=== PATIENT | female | born 1945 | race Caucasian/White ===

== ENCOUNTER → 2017-02-13 | Outpatient (CLI) | payer OTHER ==
[~2017-02-13] MED LIST: ACETAMINOPHEN650 M1 PO; ALLEGRA180 MG PO; ALLER-FEX180 MG PO; AMITRIPTYLINE H25 MG PO; ATORVASTATIN CA10 MG PO; AZULFIDINE PO; AZULFIDINE500 M1 PO; CALCIUM + D 6001 TA1 PO; CALTRATE 600+D PO; CERTAGEN PO; CHLORTHALIDONE25 MG PO; DARVOCET-N 1001 TAB PO; EDARBI80 MG PO; ENBREL50 MG/M1 SQ; ENBREL50 MG/ML PO; ETODOLAC500 MG PO; FEMARA2.5 MG PO; FISH OIL 1,0001 EAC2 PO; FISH OIL 1,001000 M1 PO; FISH OIL 1,001000 MG PO; FLOVENT DI50 MCG/DIS IH; FOLIC ACID PO; FOLIC ACID1 MG PO; FOSAMAX PO; K-DUR10 MEQ PO; LASIX PO; LASIX20 MG PO; LIPITOR PO; LIPITOR20 MG PO; LODINE500 M1 PO; LODINE500 MG PO; LOTREL 10/20 MG1 CAP PO; METHOTREXATE2.5 MG PO; MONTELUKAST SOD10 MG PO; MULTI VITAMIN1 EACH PO; NEXIUM 24HR20 MG PO; NEXIUM PO; OMEGA 3 FISH OI1 CAP PO; PRED FORTE1 ML OP; PREDNISONE PO; PREDNISONE5 MG PO; RESTASIS32 EA OP; SULFAZINE PO; TRAMADOL HCL50 M1 PO; TRAMADOL HCL50 M2 PO; TREXALL7.5 MG PO; VERAMYST10 GM NS; VITAMIN D 22000 UNIT PO; XARELTO20 MG PO
[2017-02-13 13:19] LABS: ALBUMIN SERUM 3.6 g/dL (3.5-5.0); BILIRUBIN,TOTAL 0.5 mg/dL (0.2-2.0); BUN/CREATININE RATIO 17.5; CALCIUM SERUM 9.4 mg/dL (8.4-10.2); CREATININE SERUM 1.2 mg/dL (0.6-1.4); GLOM FILT RATE Estimated 46.1 mL/min (>60); POTASSIUM 3.4 mmol/L (3.5-5.1); PROTEIN TOTAL SERUM 6.9 g/dL (6.0-8.3)
[2017-02-13 13:35] LABS: FERRITIN 20 ng/mL (11-307)
== END | disposition home or self-care (01) ==
LOC: CLAB 11:01
PROVIDERS: Family Medicine
DX: E53.8 Deficiency of other specified B group vitamins (principal); N18.3 Chronic kidney disease, stage 3 (moderate)
CPT/HCPCS: 36415; 80053; 82607; 82728; 83921

== ENCOUNTER → 2017-04-03 | Outpatient (CLI) | payer OTHER ==
[2017-04-03 10:24] LABS: BASOPHIL# 0.1 X10e3 (0-0.3); BASOPHIL% 1.4 % (0-2.5); EOSINOPHIL# 0.1 X10e3 (0-0.7); HEMATOCRIT 33.5 % (35.0-45.0); LYMPHOCYTE# 2.8 X10e3 (1.0-3.5); LYMPHOCYTE% 38.4 % (17.0-45.0); MEAN CORPUSCULAR HEMOGLOBIN 31.8 PG (28-34); MEAN CORPUSCULAR HGB CONC 32.8 g/dL (30-36); MEAN PLATELET VOLUME 7.8 FL (6.5-11.5); MONOCYTE# 0.4 X10e3 (0-1.0); MONOCYTE% 5.6 % (3.0-12.0); NEUTROPHIL# 3.8 X10e3 (1.5-7.1); NEUTROPHIL% 52.6 % (40-75); PLATELET COUNT 298 X10e3 (140-420); RED BLOOD COUNT 3.45 X10e (3.90-5.30); RED CELL DISTRIBUTION WIDTH 17.2 % (11.0-15.5); WHITE BLOOD COUNT 7.2 X10e3 (4.0-10.5)
[2017-04-03 10:30] LABS: DIFF IND NO
[2017-04-03 11:28] LABS: ALBUMIN SERUM 3.9 g/dL (3.5-5.0); BILIRUBIN,TOTAL 0.6 mg/dL (0.2-2.0); CALCIUM SERUM 9.9 mg/dL (8.4-10.2); GLOM FILT RATE Estimated 57.5 mL/min (>60); POTASSIUM 3.9 mmol/L (3.5-5.1); PROTEIN TOTAL SERUM 6.7 g/dL (6.0-8.3)
== END | disposition home or self-care (01) ==
LOC: CLAB 09:53
PROVIDERS: Family Medicine
DX: E78.00 Pure hypercholesterolemia, unspecified (principal); D63.8 Anemia in other chronic diseases classified elsewhere
CPT/HCPCS: 36415; 80053; 80061; 82728; 85025